=== PATIENT | female | born 1955 | race Caucasian/White ===

== ENCOUNTER → 2016-09-27 | Outpatient (CLI) | payer OTHER ==
[~2016-09-27] VITALS: Ht 147.3 cm; Wt 76.0 kg
[~2016-09-27] MED LIST: ALEVE220 M1 PO; BUTALB-ACETAMI1 EAC1 PO; BUTALB-ACETAMI1 EAC2 PO; BUTALB-APAP-CA1 EACH PO; CALCIUM 600 +1 EAC1 PO; CELEBREX 200 M200 MG PO; COLACE100 MG PO; COZAAR 50 MG TA50 M2 PO; GLUCOSAMINE &1 EAC1 PO; HYDROCODON-ACE1 EAC1 PO; HYDROCODONE-AP1 EAC6 PO; IBUPROFEN 200200 M1 PO; IBUPROFEN 600600 M1 PO; IBUPROFEN 800800 M1 PO; LIPITOR10 MG PO; MEDROLDOSEPACK PO; METHADONE HCL 110 M1 PO; MOBIC15 MG PO; MULTIVITAMINS1 EAC7 PO; NORCO 5-325 TA1 EACH PO; NORVASC10 MG PO; TRAMADOL 50 MG50 MG PO; ULTRAM 50MG TAB50 MG PO; XARELTO10 MG PO; ZOCOR20 MG PO; ZORVOLEX35 MG PO
--- NOTE | ~2016-09-27 | HPC ---
[facility] [place] [address] PAIN MANAGEMENT CONSULTATION Name: MADDY ESCOBAR Room #: REG [facility]..#: [id number] Admission: 09/27/16 Attend Phys: Kimani Canchola MD Discharge: Date of : 51 Report #: [id number] THIS REPORT FOR: //name// CC: Rodrigo Lozano MD DATE OF SERVICE: 09/27/2016 FOLLOWUP COMPLAINT: The pain is all right. FOLLOWUP HISTORY: The patient is a 61-year-old female who has been seen in the pain clinic because of chronic lumbar radiculopathy. She finds that the tramadol medication was more helpful in the past. She continues to have pain and discomfort. She feels that it is mildly helpful. She rates her pain as 8/10. She notes walking, getting out of chair, sitting and driving can all exacerbate her discomfort. She rates her pain as an 8/10. It was 4/10 at the last visit. She feels that the cold weather may have something to do with it. She has not fallen since we saw her last. PHYSICAL EXAMINATION: VITAL SIGNS: Blood pressure 146/78, pulse 92, respiratory rate 16, room air saturation is 95%. The patient's height 147 cm, weight 76 kg, BMI is 35. MUSCULOSKELETAL: The patient continues to have pain and discomfort in the lumbar area with numbness, tingling as well as radiation of pain down into her legs. IMPRESSION: Lumbar radiculopathy with numbness and tingling radiating down into her legs to the level of the knee. RECOMMENDATION: We will continue with a conservative approach. The patient will try ibuprofen 600 mg 1 p.o. t.i.d. Script for this has been written. The patient will also continue with methadone 10 mg 1 p.o. t.i.d. She feels that the tramadol medication although it is not as effective, it is still helpful and would like to continue its use. She will call us if she has any problems with her medications. We would like to thank you for letting us participate in her care. We hope she continues to improve. <ELECTRONICALLY SIGNED> By: Kimani Canchola MD 09/30/16 0819 [id number] Kimani Canchola MD /nt
[2016-09-27 10:27] VITALS: BP 146/78
== END ==
LOC: PAIN 05:56
DX: M54.16 Radiculopathy, lumbar region (principal); I10 Essential (primary) hypertension

== ENCOUNTER → 2016-12-23 | Outpatient (CLI) | payer OTHER ==
[~2016-12-23] VITALS: Ht 147.3 cm; Wt 77.6 kg
--- NOTE | ~2016-12-23 | HPC ---
[facility] [address] [place] [address] PAIN MANAGEMENT CONSULTATION Name: MADDY ESCOBAR Room #: REG [facility]..#: [id number] Admission: 12/23/16 Attend Phys: Kimani Canchola MD Discharge: Date of : 53 Report #: [id number] THIS REPORT FOR: //name// CC: Rodrigo Lozano MD DATE OF SERVICE: 12/23/2016 FOLLOWUP COMPLAINT: Pain in the low back, right knee. FOLLOWUP HISTORY: The patient is a very pleasant 61-year-old female who has been followed in the pain clinic because of chronic lumbar radiculopathy. She also has some pain in her right knee. She rates it as a 5/10 today. She notes that walking, getting up from her chair and stiffness is present after driving. It can be problematic if she sits for too long. Sometimes improved by use of a cold pack. She feels that her medications are helpful and she is taking them as prescribed. She has had no complications from their use and would like to continue the medication. PHYSICAL EXAMINATION: Blood pressure 158/88, pulse 95, respiratory rate 14, room air saturation 98%. Height is 4 feet 10 inches, weight 77 kilos, BMI is 35.7. The patient has pain and discomfort as a result of pain radiating down into her lumbar area with numbness and tingling down into her legs. IMPRESSION: Lumbar radiculopathy with numbness and tingling into the legs down to level of her knee. RECOMMENDATION: We will continue with a conservative approach. The patient will continue with opioid medications and a script for her medications have been written. She will call us if she has any problems with the medications. We would like to thank you for letting us participate in her care. We hope she continues to improve. By: [id number] Kimani Canchola MD /nt
[2016-12-23 10:09] VITALS: BP 158/88
== END | disposition home or self-care (01) ==
LOC: PAIN 06:55
DX: M54.16 Radiculopathy, lumbar region (principal); M25.561 Pain in right knee; G89.29 Other chronic pain

== ENCOUNTER → 2017-03-22 | Outpatient (CLI) | payer OTHER ==
[~2017-03-22] VITALS: Ht 149.9 cm; Wt 77.1 kg
[2017-03-22 09:14] VITALS: BP 154/89
== END | disposition home or self-care (01) ==
LOC: PAIN 06:49
DX: M48.06 Spinal stenosis, lumbar region (principal); G89.29 Other chronic pain; F11.20 Opioid dependence, uncomplicated; Z88.8 Allergy status to other drugs, medicaments and biological substances

== ENCOUNTER → 2017-06-28 | Outpatient (CLI) | payer OTHER ==
[~2017-06-28] VITALS: Ht 147.3 cm; Wt 71.5 kg
--- NOTE | ~2017-06-28 | HPC ---
[facility] [place] [address] [place] [address] PAIN MANAGEMENT CONSULTATION Name: MADDY ESCOBAR Room #: REG [facility]..#: [id number] Admission: 06/28/17 Attend Phys: Kimani Canchola MD Discharge: Date of : 53 Report #: [id number] THIS REPORT FOR: //name// CC: Rodrigo Lozano MD DATE OF SERVICE: 06/28/2017 FOLLOWUP COMPLAINT: Pain in the low back as well as in the knees bilaterally. FOLLOWUP HISTORY: The patient is a 61-year-old female who has been followed in the pain clinic because of chronic pain involving her low back and knees. She has chosen a conservative approach. She finds that ibuprofen, tramadol, and methadone are quite helpful. She would like to continue with these medications. She states that she is taking them as prescribed. She is having no complications. There are no problems with limitation. She would like to continue their use. PHYSICAL EXAMINATION: Blood pressure is 133/71, pulse 103, respiratory rate 20, room air saturation 98%. Height 4 feet 10 inches, weight 157 pounds, BMI is 32. The patient has pain and discomfort with pain radiating down into her legs with numbness and tingling at the level of the knees. RECOMMENDATION: We will continue with her current medical regimen. Risks and benefits of opioid therapy have been discussed. The patient would like to continue. A script for ibuprofen 600 mg has been written, tramadol script for 50 mg is written and methadone 10 mg 1 p.o. t.i.d. has been dispensed. She will call us if she has any problems with her medications. We would like to thank you for letting us participate in her care. We hope she continues to improve. By: [id number] Kimani Canchola MD /MILAN
[2017-06-28 09:18] VITALS: BP 133/71
== END | disposition home or self-care (01) ==
LOC: PAIN 07:17
DX: M54.5 Low back pain (principal); M17.0 Bilateral primary osteoarthritis of knee; Z68.32 Body mass index [BMI] 32.0-32.9, adult

== ENCOUNTER → 2017-09-22 | Outpatient (CLI) | payer OTHER ==
[~2017-09-22] VITALS: Ht 147.3 cm; Wt 76.2 kg
[~2017-09-22] MED LIST changes: +VITAMIN D1000 UNI1 PO
--- NOTE | ~2017-09-22 | HPC ---
[facility] [address] [place] [address] PAIN MANAGEMENT CONSULTATION Name: MADDY ESCOBAR Room #: REG [facility] M.R.#: [id number] Admission: 09/22/17 Attend Phys: Kimani Canchola MD Discharge: Date of : 53 Report #: [id number] THIS REPORT FOR: //name// CC: Rodrigo Lozano MD DATE OF SERVICE: 09/22/2017 FOLLOWUP COMPLAINT: Here for renewal of medication. Things are going okay. FOLLOWUP HISTORY: The patient is a 62-year-old female who has been followed in the pain clinic because of chronic pain involving her low back, bilateral knee pain and rates this pain and discomfort as a 7. She still has some pain and discomfort. Activities of daily living such as walking, getting up from a chair and certain other activities can exacerbate her pain. She continues to take the medications as prescribed. She continues to keep her medications in a guarded environment. We have discussed the possible complications of opioid use. She is a nurse. She is aware that possible addiction and tolerance could ensue. She feels that the medications are helpful and enable her to continue being gainfully employed at this juncture. ALLERGIES: ERYTHROMYCIN. MEDICATIONS: Vitamin D, tramadol 50 mg tablets 1 q.6-8 hours p.r.n., methadone 10 mg 1 p.o. t.i.d., ibuprofen 600 mg q.8 hours, Cozaar 50 mg at bedtime, Lipitor 10 mg, Norvasc 10 mg. PHYSICAL EXAMINATION: VITAL SIGNS: Blood pressure 154/76, pulse 103, respiratory rate 16, room air saturation 96%. Height 4 feet 4 feet 10 inches, weight 168 pounds, BMI 35. The patient has not fallen since we saw her last. Continues to work as a nurse. HEENT: Unremarkable. NECK: Without adenopathy. HEART: Regular rate. ABDOMEN: Nontender. The patient does complain of some numbness and tingling down in her leg to the level of her knees. IMPRESSION: 1. Chronic knee pain. 2. Low back pain with lumbar radicular pain down into the legs. 3. Hypercholesterolemia. 4. Hypertension. 5. Arthritic changes in the knee. [address] [address] PAIN MANAGEMENT CONSULTATION Name: MADDY ESCOBAR Room #: REG [facility].#: [id number] Admission: 09/22/17 Attend Phys: Kimani Canchola MD Discharge: Date of : 53 Report #: [id number] RECOMMENDATIONS: We discussed treatment options with the patient. At this juncture, we will continue with her current medical regimen. We have discussed the use of opioid medications. We have discussed the [facility] new regulations regarding use of opioid medications. The patient states that she continues to use her medications in a reasonable fashion. Continues to keep them in a controlled environment. She has found some medications continue to be helpful and enable her to remain active. At this juncture, she feels that the methadone is helpful and allows her to continue to work without the need for back surgery at this juncture. <ELECTRONICALLY SIGNED> By: Kimani Canchola MD 10/04/17 0837 [id number] Kimani Canchola MD /[facility]
[2017-09-22 09:42] VITALS: BP 154/76
== END ==
LOC: PAIN 07:10
DX: M54.16 Radiculopathy, lumbar region (principal); E78.00 Pure hypercholesterolemia, unspecified; E11.9 Type 2 diabetes mellitus without complications; M17.0 Bilateral primary osteoarthritis of knee; M25.562 Pain in left knee

== ENCOUNTER → 2017-12-27 | Outpatient (CLI) | payer OTHER ==
[~2017-12-27] VITALS: Ht 147.3 cm; Wt 76.4 kg
--- NOTE | ~2017-12-27 | HPC ---
[facility] [address] [place] [address] PAIN MANAGEMENT CONSULTATION Name: MADDY ESCOBAR Room #: REG [facility] M..#: [id number] Admission: 12/27/17 Attend Phys: Kimani Canchola MD Discharge: Date of : 53 Report #: [id number] THIS REPORT FOR: //name// CC: Rodrigo Lozano DATE OF SERVICE: 12/27/2017 FOLLOWUP COMPLAINT: Here for medication renewed and pain as a 4/10. FOLLOWUP HISTORY: The patient is a 62-year-old female who has been seen in the pain clinic because of lumbar pain in the low back, as well as bilateral knee pain and discomfort. She rates her pain as a 4/10. Notes that the pain is still problematic. Notes that she needs to use of her hands and notes worsening of her pain when she gets up from a sitting position to ambulation. She finds that her medications are helpful. Has pain and discomfort in both knees, which is chronic in nature. Overall, she feels that her medications are helpful and rates her pain as a 4/10. She has had no complication from the use of the medications. She feels that this medication is helpful and she is able to remain gainfully employed. She is able to engage in activities of daily living. States that she has taken the medication as prescribed. No significant bowel or bladder problems. Her mentation is clear. She would like to continue with her medications. She has been watching the opioid messages play out on the media. Overall, she feels that this medication is helpful for her. She keeps her medication in a guarded area. She would like to continue with her medication. ALLERGIES: MORPHINE, ERYTHROMYCIN. CURRENT MEDICATIONS: Tramadol 50 mg one p.o. q. 4 hours p.r.n., methadone 10 mg 1 p.o. t.i.d., ibuprofen 600 mg 1 p.o. q. 8 hours p.r.n., vitamin D 1000 units, losartan 50 mg at bedtime, Lipitor 10 mg, Norvasc 10 mg. PHYSICAL EXAMINATION: GENERAL: The patient is a well-developed white female. She appears to be her stated age. Orientation: The patient is alert and oriented x 3. The patient's affect is appropriate. Speech is fluent. HEENT: Normocephalic, atraumatic. Extraocular eye muscles intact. Hearing is within normal limits. Sclerae is clear. Buccal membranes are moist. The patient has good range of motion of her neck. HEART: Regular rate. LUNGS: Clear to auscultation. MUSCULOSKELETAL: Without significant scoliosis, kyphosis or lordosis. Has some pain and discomfort in the knees bilaterally. Notes some pain and discomfort in [address] [address] PAIN MANAGEMENT CONSULTATION Name: MADDY ESCOBAR Room #: REG [facility] Joselo#: [id number] Admission: 12/27/17 Attend Phys: Kimani Canchola MD Discharge: Date of : 53 Report #: [id number] the lower portion of her back. Muscle strength is judged to be 5/5 for the major muscle groups in the upper extremity as well as with head cook strength and normal sensation. Lower back 5/5 muscle strength with some pain and discomfort in the paraspinous muscles area. IMPRESSION: Bilateral knee pain with history of lumbar radiculopathy, severe foraminal narrowing at L5-S1 and moderately severe foraminal stenosis at L4-L5, hypertension, hyperlipidemia. PAIN CLINIC ASSESSMENT: 1. History of osteoarthritis, right lower extremity, some low back areas with spinal stenosis in the lower lumbar area. 2. Height 4 feet 10 inches, weight 164 pounds, BMI is 35. 3. Vital signs: Blood pressure 144/93, pulse 88, respiratory rate 16, room air saturation 98%. 4. Pain intensity is 4/10. 5. Fall risk. The patient has not fallen in the last 3 months. 6. Blood thinner. The patient is not on a blood thinner. 7. Hypertension. The patient is being treated for hypertension. 8. Opioid therapy greater than 6 weeks. The patient is on opioid therapy. 9. Risk assessment tool, low risk for opioid use. 10. Functional assessment tool showing some impact on her activities of daily living. 11. Recreational drug use, never. 12. Tobacco, never smoked cigarettes. 13. Alcoholic use, denies use of alcoholic beverages. RECOMMENDATIONS: We discussed treatment options with the patient. At this juncture, she seems to be doing reasonably well with her current medication regimen. We will continue with the use of the methadone 10 mg 1 p.o. t.i.d., ibuprofen 600 mg daily, tramadol 50 mg q. 4 hours p.r.n. The patient will call us if she has any problems with her medications. We would like to thank you for letting us participate in her care. We hope she continues to improve. By: [id number] Kimani Canchola MD /MILAN
[2017-12-27 09:36] VITALS: BP 144/93
== END ==
LOC: PAIN 09:23
DX: M25.561 Pain in right knee (principal); M25.562 Pain in left knee; E78.5 Hyperlipidemia, unspecified; I10 Essential (primary) hypertension; M47.27 Other spondylosis with radiculopathy, lumbosacral region; Z88.5 Allergy status to narcotic agent; Z88.1 Allergy status to other antibiotic agents

== ENCOUNTER → 2018-03-30 | Outpatient (CLI) | payer OTHER ==
[~2018-03-30] VITALS: Ht 147.3 cm; Wt 78.5 kg
--- NOTE | ~2018-03-30 | HPC ---
[facility] [address] [place] [address] PAIN MANAGEMENT CONSULTATION Name: MADDY ESCOBAR Room #: REG [facility] M.R.#: [id number] Admission: 03/30/18 Attend Phys: Kimani Canchola MD Discharge: Date of : 51 Report #: [id number] THIS REPORT FOR: //name// CC: Jorge Alberto Lozano MD DATE OF SERVICE: 03/30/2018 FOLLOWUP COMPLAINT: Here for medication renewal, things are going reasonably well, but I am still having knee pain. FOLLOWUP HISTORY: The patient is a 62-year-old female who has been followed in the pain clinic because of chronic pain involving her low back. She also has bilateral knee pain. Feels that the knee pain is becoming more of problem at this juncture, but still elects to continue on a conservative approach. Notes that her pain medications of methadone and tramadol as well as ibuprofen are helpful. They enable her to continue to remain gainfully employed. She is taking the medication as prescribed. Having no problems with the medication. Sensorium is clear. She has returned today and would like to get her medications renewed. She is aware of the possible complication with opioid medications, which could include addiction as well as less effectiveness of the medication secondary to tolerance. She has returned today for renew of her medications. ALLERGIES: MORPHINE AND ERYTHROMYCIN. MEDICATIONS: Tramadol 50 mg q. 4 hours p.r.n., methadone 10 mg 1 p.o. t.i.d., ibuprofen 600 mg q.8 hours, vitamin D 1000 units, losartan 50 mg at bedtime, Lipitor 10 mg, and Norvasc 10 mg. PAIN CLINIC ASSESSMENT: 1. The patient has a history of osteoarthritis involving her right lower extremity as well as her left lower extremity involving her knees. 2. Height 4 feet 10 inches, weight 173 pounds, BMI is 36. 3. Vital signs: Blood pressure 144/73, pulse 69, respiratory rate 16, room air saturation is 100%. 4. Pain intensity 8/10 with activity. 5. Fall risk. The patient has not fallen in the last 3 months. 6. Use of blood thinning medication. The patient is not on a blood thinner. 7. Hypertension. The patient is being treated for hypertension. 8. Opioid therapy greater than 6 weeks. The patient is receiving her medication from 1 source, which is the pain clinic. 9. Risk assessment tool, low risk for opioid use. 10. Functional assessment tool. [address] [address] PAIN MANAGEMENT CONSULTATION Name: MADDY ESCOBAR Room #: REG [facility]#: [id number] Admission: 03/30/18 Attend Phys: Kimani Canchola MD Discharge: Date of : 53 Report #: [id number] 11. Recreational drug use. The patient denies use of recreational drugs. 12. Tobacco: The patient denies use of tobacco. 13. Alcohol: The patient denies frequent use of alcoholic beverages. PHYSICAL EXAMINATION: GENERAL: The patient is a well-developed white female, appears somewhat short in stature. She is alert and oriented x 3. HEENT: Sclerae is nonicteric. Hearing is within normal limits. Mucous membranes are moist. NECK: Without adenopathy or JVD. HEART: Regular rate. S1, S2. ABDOMEN: Nontender. LUNGS: Clear to auscultation without rhonchi or rales. MUSCULOSKELETAL: Without significant scoliosis, kyphosis, or lordosis. Upper extremity muscle strength is judged to be 5/5 for the major muscle groups in the upper extremity with symmetry. Lower extremity muscle strength is 5/5. The patient has pain and discomfort involving her knees bilaterally. Has history of back pain, which radiates down into the lumbar area as well. RECOMMENDATIONS: We will renew the patient's medication. A script for tramadol 50 mg every 4-6 hours, ibuprofen 600 mg q.i.d. -- patient felt that this medication works better than Mobic, methadone 10 mg 1 p.o. t.i.d. The patient will call us if she has any problem with her medications. We would like to thank you for letting us participate in her care. We hope she continues to improve. By: [id number] Kimani Canchola MD /MILAN
[2018-03-30 09:53] VITALS: BP 144/73
== END ==
LOC: PAIN 06:51
DX: M54.5 Low back pain (principal); M25.561 Pain in right knee; M25.562 Pain in left knee; Z79.899 Other long term (current) drug therapy

== ENCOUNTER → 2018-03-30 | Outpatient (CLI) | payer OTHER | LOC: RAD 10:54 | DX: Z12.31 Encounter for screening mammogram for malignant neoplasm of breast (principal) ==

== ENCOUNTER → 2018-07-11 | Outpatient (CLI) | payer OTHER ==
[~2018-07-11] VITALS: Ht 147.3 cm; Wt 81.1 kg
[2018-07-11 09:17] VITALS: BP 126/70
== END ==
LOC: PAIN 06:58
DX: M54.5 Low back pain (principal); M17.11 Unilateral primary osteoarthritis, right knee; G89.29 Other chronic pain; Z79.899 Other long term (current) drug therapy

== ENCOUNTER → 2018-10-24 | Outpatient (CLI) | payer OTHER ==
[~2018-10-24] VITALS: Ht 149.9 cm; Wt 80.8 kg
--- NOTE | ~2018-10-24 | HPC ---
[facility] [place] [address] [place] [address] PAIN MANAGEMENT CONSULTATION Name: MADDY ESCOBAR Room #: REG [facility]..#: [id number] Admission: 10/24/18 Attend Phys: Kimani Canchola MD Discharge: Date of : 51 Report #: [id number] THIS REPORT FOR: //name// CC: Kimani Lozano MD DATE OF SERVICE: 10/24/2018 CHIEF COMPLAINT: Here for medications. "I might consider having my knee surgery in the future." HISTORY OF PRESENT ILLNESS: The patient is a 63-year-old female who has been followed in the Pain Clinic. As you recall, she continues to have some pain in her back. Has bilateral knee pain. She is entertaining, having her knee replaced. Finds it is more and more problematic. She feels that the work force at her job is more stable at this point. She is going to consider undergoing surgery. She may have it at [facility]. She overall feels that her medications are helpful. She has returned today for renewal of the medications. Does not have any problems with him. Feels that they enable her to stay gainfully employed, help decrease her pain. She is able to think clearly. There are no problems with clouding of her sensorium. ALLERGIES: MORPHINE, ERYTHROMYCIN. CURRENT MEDICATIONS: Tramadol 50 mg q.4h., methadone 10 mg 1 p.o. t.i.d., ibuprofen 600 mg q.8h., vitamin D 1000 units, losartan 50 mg, Lipitor 10 mg, and Norvasc 10 mg. PAIN CLINIC ASSESSMENT/PQRS. 1. The patient has a history of osteoarthritis change involving her left knee and is contemplating replacement. Also, has some low back pain. The patient is not being treated for rheumatoid arthritis. 2. Height 4 feet 10 inches, weight 178 pounds, BMI 36.0. 3. Vital signs: Blood pressure 121/67, pulse 91, respiratory rate 16, and room air saturation 97%. 4. Pain intensity 01/02. 5. Fall risk. The patient has not fallen in the last 3 months. 6. Blood thinner. The patient is not on a blood thinning medication. 7. Hypertension. The patient is being treated for hypertension. 8. Opioid greater than 6 weeks. The patient receives her medications from one source, the Pain Clinic. 9. Risk assessment tool, low risk 0 for opioid use. 10. Functional assessment tool . 11. Recreational drug use. The patient denies use recreational drugs. 12. Tobacco: The patient has never smoked. [address] [address] PAIN MANAGEMENT CONSULTATION Name: MADDY ESCOBAR Room #: REG [facility].#: [id number] Admission: 10/24/18 Attend Phys: Kimani Canchola MD Discharge: Date of : 51 Report #: [id number] 13. Alcohol: The patient denies use of alcoholic beverages. PHYSICAL EXAMINATION: GENERAL: The patient is a well-developed, well-nourished, somewhat small in stature white female. She is alert and oriented x 3. Her affect is appropriate. Speech is slow. HEENT: Normocephalic and atraumatic. Extraocular muscles intact. Sclerae nonicteric. Mucous membranes are moist. NECK: Without adenopathy or JVD. MUSCULOSKELETAL: Without significant scoliosis, kyphosis or lordosis. Upper extremity muscle strength is judged to be 5/5 for the major muscle groups in the upper extremity. The patient has lower extremity muscle strength 5/5. The patient has pain and discomfort in her knees. Left knee more problematic. Has some pain in the lower portion of the back with occasional pain that radiated down into the lumbar area. IMPRESSION: 1. Chronic pain involving the low back. 2. Osteoarthritis involving the knees. The patient is contemplating having knee surgery. RECOMMENDATIONS: We discussed treatment options with the patient. At this juncture, we will continue with her current medical regimen of tramadol 50 mg q.4-6h., ibuprofen 600 mg, methadone 10 mg t.i.d. and Mobic. The patient will continue with her medications. She will call us if she has any concerns. We would like to thank you for letting us participate in her care. We hope she continues to improve. By: [id number] Kimani Canchola MD /masood
[2018-10-24 12:40] VITALS: BP 121/67
--- NOTE | 2018-10-24 12:50 | NUR ---
Pain Clinic Assessment: 1. History of Osteoarthritis: Right Lower Extremity History of Rheumatoid Arthritis: Not Applicable 2. Height: 4 ft. 11 in. 149.9 cm. Weight: 178.2 lb. oz. 80.831 kg. Patient's BMI: 36.0 3. Vital Signs: BP: 121/67 Pulse: 93 Resp: 16 Temp: 02 Sat: 97 ECG Mon: 4. Pain Intensity: 4 5. Fall Risk: Dizziness: N Needs help standing or walking: N Fallen in the last 3 months: N Fall risk comments: 6. Patient on Blood Thinner: None 7. History of Hypertension: Y 8. Opioid Therapy greater than 6 weeks: Y Opiate Contract Signed: 12/27/17 9. Risk Assessment Tool Provided: LOW RISK 0/0 10. Functional Assessment Tool: 23 11. Recreational Drug Use: Never Drug Type: Tobacco Use: Never Smoker Tobacco Type: Amount or Packs/day: How Many Years: Alcohol Use: No Frequency: Quant:
== END ==
LOC: PAIN 07:00
DX: M17.0 Bilateral primary osteoarthritis of knee (principal); M54.5 Low back pain; G89.29 Other chronic pain; Z79.899 Other long term (current) drug therapy

== ENCOUNTER → 2019-01-23 | Outpatient (CLI) | payer OTHER ==
[~2019-01-23] VITALS: Ht 149.9 cm; Wt 78.0 kg
--- NOTE | ~2019-01-23 | HPC ---
[facility] [place] [address] PAIN MANAGEMENT CONSULTATION Name: MADDY ESCOBAR Room #: REG [facility] Rodney.#: [id number] Admission: 01/23/19 ������������������ Attend Phys: Kimani Canchola MD Discharge: ������������������ Date of : 51 Report #: [id number] THIS REPORT FOR: //name// CC: Kimani Lozano DATE OF SERVICE: 01/23/2019 CHIEF COMPLAINT: Here for medication renewal, things are going reasonably well. HISTORY: The patient is a very pleasant 63-year-old female. She has been followed in the pain clinic because of chronic pain. She has pain that radiates down in to her knees. She is considering having her knee replaced. Continues to stay gainfully employed. She does work in a physician's office. She is not having any problems with her medications and has returned today with a desire to continue with her medications of tramadol and methadone. ALLERGIES: MORPHINE, ERYTHROMYCIN. CURRENT MEDICATIONS: Tramadol 50 mg every 4 hours, methadone 10 mg 1 p.o. t.i.d., ibuprofen 600 mg q.i.d., vitamin D 1000 units, losartan 50 mg, Lipitor 10 mg, and Norvasc 5 mg. PAIN CLINIC ASSESSMENT/PQRS: 1. History of osteoarthritis. The patient has some arthritic changes in her left knee. She has not been treated for rheumatoid arthritis. 2. Height 4 feet 11 inches, weight 172 pounds, BMI 34.7. 3. VITAL SIGNS: Blood pressure 127/66, pulse is 66, respiratory rate 18, room air saturation is 100%. 4. Pain intensity 5/10. 5. Fall risk. The patient has not fallen in the last 3 months. 6. Blood thinner. The patient is not on a blood thinning medication. 7. Hypertension. The patient is being treated for hypertension. 8. Opioids greater than 6 weeks. The patient receives her medications from one source, the pain clinic. 9. Risk assessment tool, low for opioid use. 10. Functional assessment tool . 11. Recreational drug use. The patient denies use of recreational drugs. 12. Tobacco: The patient has never smoked. 13. Alcohol: The patient denies use of alcoholic beverages. PHYSICAL EXAMINATION: GENERAL: The patient is a well-developed, well-nourished white female. Appears her stated age. She is alert and oriented x 3. Affect is appropriate. Speech is fluent. HEENT: Normocephalic, atraumatic. Extraocular eye muscles intact. Sclerae [address] [address] PAIN MANAGEMENT CONSULTATION Name: MADDY ESCOBAR Room #: REG [facility]#: [id number] Admission: 01/23/19 ������������������ Attend Phys: Kimani Canchola MD Discharge: ������������������ Date of : 51 Report #: [id number] nonicteric. Mucous membranes are moist. NECK: Without adenopathy or JVD. HEART: Regular rate. S1, S2. ABDOMEN: Nontender. Bowel sounds present. LUNGS: Clear to auscultation without rhonchi or rales. MUSCULOSKELETAL: Without significant scoliosis, kyphosis or lordosis. Upper extremity muscle strength is judged to be 5/5 for the major muscle groups of the upper extremity. Lower extremity, the patient has some pain and discomfort ____ involving her knees bilaterally. History of back pain, which radiates down into the low back area with lumbar radicular symptoms. RECOMMENDATIONS: We discussed treatment options with the patient. Risks and benefits of continued opioid medications were discussed. She is aware that chronic use of opioid medications can become less effective over time secondary to development of tolerance. States that she has taken her medications as prescribed. She is aware that 72,000 people as a result of overdose last year. She feels her medications are working well. She keeps them in a guarded area. She would like to have her medications renewed. A script for her medications of methadone 10 mg 1 p.o. t.i.d. and tramadol 50 mg 1 p.o. have been written. The patient will also continue with ibuprofen 600 mg t.i.d. She will monitor her GI tract. She will stop the medication if she notes any problems with her GI tract. We would like to thank you for letting us participate in her care. We hope she continues to improve. ��������������������������������������������� ���������������������������������������� By: ��������������������������������������������� [id number] Kimani Canchola MD /masood
[2019-01-23 09:33] VITALS: BP 127/66
--- NOTE | 2019-01-23 09:42 | NUR ---
Pain Clinic Assessment: 1. History of Osteoarthritis: Right Lower Extremity History of Rheumatoid Arthritis: Not Applicable 2. Height: 4 ft. 11 in. 149.9 cm. Weight: 172.0 lb. oz. 78.019 kg. Patient's BMI: 34.7 3. Vital Signs: BP: 127/66 Pulse: 66 Resp: 18 Temp: 02 Sat: 100 ECG Mon: 4. Pain Intensity: 5 5. Fall Risk: Dizziness: N Needs help standing or walking: N Fallen in the last 3 months: N Fall risk comments: 6. Patient on Blood Thinner: None 7. History of Hypertension: Y 8. Opioid Therapy greater than 6 weeks: Y Opiate Contract Signed: 12/27/17 9. Risk Assessment Tool Provided: LOW RISK 0/0 10. Functional Assessment Tool: 23 11. Recreational Drug Use: Never Drug Type: Tobacco Use: Never Smoker Tobacco Type: Amount or Packs/day: How Many Years: Alcohol Use: No Frequency: Quant:
== END ==
LOC: PAIN 07:08
DX: I10 Essential (primary) hypertension (principal); M19.90 Unspecified osteoarthritis, unspecified site; Z88.8 Allergy status to other drugs, medicaments and biological substances; Z79.899 Other long term (current) drug therapy; Z79.891 Long term (current) use of opiate analgesic

== ENCOUNTER → 2019-02-11 | Outpatient (CLI) | payer OTHER | LOC: RAD 07:07 | DX: R92.2 Inconclusive mammogram (principal); I10 Essential (primary) hypertension; E78.5 Hyperlipidemia, unspecified; G43.909 Migraine, unspecified, not intractable, without status migrainosus; M19.90 Unspecified osteoarthritis, unspecified site; E78.00 Pure hypercholesterolemia, unspecified; Z98.890 Other specified postprocedural states ==

== ENCOUNTER → 2019-04-17 | Outpatient (CLI) | payer OTHER | LOC: RAD 01:16 | DX: Z12.31 Encounter for screening mammogram for malignant neoplasm of breast (principal) ==

== ENCOUNTER → 2019-04-19 | Outpatient (CLI) | payer OTHER ==
[~2019-04-19] VITALS: Ht 124.5 cm; Wt 76.7 kg
--- NOTE | ~2019-04-19 | HPC ---
[facility] [address] [place] [address] PAIN MANAGEMENT CONSULTATION Name: MADDY ESCOBAR Room #: REG [facility]..#: [id number] Admission: 04/19/19 ������������������ Attend Phys: Kimani Canchola MD Discharge: ������������������ Date of : 51 Report #: [id number] THIS REPORT FOR: //name// CC: [facility] DATE OF SERVICE: 04/19/2019 CHIEF COMPLAINT: "I am going to see the doctor about having my knee replaced." HISTORY: The patient is a 63-year-old female who has been followed in the pain clinic because of chronic pain involving her knee. She has had one knee replaced some years ago. She has noticed that her pain has increased and she is having pain in the right lower extremity at this point. She rates the pain as an 8/10. She finds that her medications are helpful. She is contemplating seeing her Orthopedic doctor in the next few days. She will then consider having a knee replacement. She feels that her medications of tramadol and methadone are beneficial. She continues to work as a result of pain control provided by her medications. ALLERGIES: MORPHINE, ERYTHROMYCIN. CURRENT MEDICATIONS: Tramadol 50 mg 1 p.o. q.4 hours, methadone 10 mg 1 p.o. t.i.d., ibuprofen 600 mg q.i.d., vitamin D 1000 units, losartan 50 mg, Lipitor 10 mg, Norvasc 5 mg. PAIN CLINIC ASSESSMENT AND PQRS: 1. History of osteoarthritis. The patient has some osteoarthritic change in her left knee as well as in the right knee. The patient is not being treated for rheumatoid arthritis. 2. Height 4 feet 1 inch, weight 169 pounds, BMI is 49.5. 3. Vital signs: Blood pressure 137/54, pulse 80, respiratory rate 13, room air saturation 98%. 4. Pain intensity, 8/10. 5. Fall history. The patient has not fallen in the last 3 months. 6. Blood thinner. The patient is not on a blood thinning medication. 7. Hypertension. The patient is being treated for hypertension. 8. Opioids greater than 6 weeks. The patient receives her medication from one source, the pain clinic. 9. Risk assessment tool, low for opioid use. 10. Functional assessment tool, . 11. Recreational drug use. The patient has never smoked. 12. Alcohol: The patient denies use of alcoholic beverages. PHYSICAL EXAMINATION: [facility] [address] [place] [address] PAIN MANAGEMENT CONSULTATION Name: MADDY ESCOBAR [facility] [id number] Admission: 04/19/19 ������������������ Attend Phys: Kimani Canchola MD Discharge: ������������������ Date of : 51 Report #: [id number] GENERAL: The patient is a well-developed, well-nourished white female. Appears her stated age. She is somewhat short in stature. HEENT: Normocephalic, atraumatic. Extraocular eye muscles intact. Sclerae nonicteric. Mucous membranes are moist. NECK: Without adenopathy or JVD. HEART: Regular rate. S1, S2. ABDOMEN: Nontender. Bowel sounds present. LUNGS: Clear to auscultation. MUSCULOSKELETAL: Without significant scoliosis, kyphosis or lordosis. Upper extremity muscle strength judged to be 5/5 for the major muscle groups. The patient has some pain in the lower extremities involving her knees bilateral. She has noticed more pain and discomfort in the right knee. She is noticing more difficulty with ambulation because of it. RECOMMENDATIONS: We discussed treatment options with the patient. At this juncture, we will continue with her medications. She feels that they are helpful. She is working on a right knee replacement. She is on opioid medications. She is aware that use of opioid medications post-surgery might be a little bit more difficult given her chronic history of opioid medications. She is aware that opioid medications can be problematic in some patients. She feels that her medications are working reasonably well. She is keeping it in a guarded area. She may notice an increased amount of pain after the surgery. Should her pain become more problematic, we will work with her to help provide a smooth transition in the post-surgical period. A script for her medications of tramadol 1 p.o. q.i.d. and methadone 10 mg 1 p.o. t.i.d. have been written. The patient will follow up in the future as needed. We would like to thank you for letting us participate in her care. We hope she gets a smooth postop transition. ��������������������������������������������� ���������������������������������������� By: ��������������������������������������������� [id number] Kimani Canchola MD /MILAN
[2019-04-19 10:09] VITALS: BP 137/54
--- NOTE | 2019-04-19 10:14 | NUR ---
Pain Clinic Assessment: 1. History of Osteoarthritis: Right Lower Extremity History of Rheumatoid Arthritis: Not Applicable 2. Height: 4 ft. 1 in. 124.5 cm. Weight: 169.0 lb. oz. 76.658 kg. Patient's BMI: 49.5 3. Vital Signs: BP: 137/54 Pulse: 80 Resp: 13 Temp: 02 Sat: 98 ECG Mon: 4. Pain Intensity: 8 5. Fall Risk: Dizziness: N Needs help standing or walking: N Fallen in the last 3 months: N Fall risk comments: 6. Patient on Blood Thinner: None 7. History of Hypertension: Y 8. Opioid Therapy greater than 6 weeks: Y Opiate Contract Signed: 12/27/17 9. Risk Assessment Tool Provided: LOW RISK 0/0 10. Functional Assessment Tool: 23 11. Recreational Drug Use: Never Drug Type: Tobacco Use: Never Smoker Tobacco Type: Amount or Packs/day: How Many Years: Alcohol Use: No Frequency: Quant:
== END ==
LOC: PAIN 04-17 08:51
DX: M17.12 Unilateral primary osteoarthritis, left knee (principal); G89.29 Other chronic pain; I10 Essential (primary) hypertension; Z79.891 Long term (current) use of opiate analgesic; Z79.899 Other long term (current) drug therapy; Z88.5 Allergy status to narcotic agent; Z88.1 Allergy status to other antibiotic agents

== ENCOUNTER → 2019-07-10 | Outpatient (CLI) | payer OTHER ==
[~2019-07-10] VITALS: Ht 149.9 cm; Wt 75.2 kg
[~2019-07-10] MED LIST changes: +PERCOCET 5-3251 EACH PO
[2019-07-10 14:27] VITALS: BP 128/84
--- NOTE | 2019-07-10 14:36 | NUR ---
Pain Clinic Assessment: 1. History of Osteoarthritis: KNEE B/L HIPS LOWER BACK History of Rheumatoid Arthritis: Not Applicable 2. Height: 4 ft. 11 in. 149.9 cm. Weight: 165.8 lb. oz. 75.206 kg. Patient's BMI: 33.5 3. Vital Signs: BP: 128/84 Pulse: 103 Resp: 16 Temp: 02 Sat: 97 ECG Mon: 4. Pain Intensity: 4-NOW 5. Fall Risk: Dizziness: N Needs help standing or walking: N Fallen in the last 3 months: N Fall risk comments: 6. Patient on Blood Thinner: None 7. History of Hypertension: Y 8. Opioid Therapy greater than 6 weeks: Y Opiate Contract Signed: 12/27/17 9. Risk Assessment Tool Provided: LOW RISK 0/0 10. Functional Assessment Tool: 23 11. Recreational Drug Use: Never Drug Type: Tobacco Use: Never Smoker Tobacco Type: Amount or Packs/day: How Many Years: Alcohol Use: No Frequency: Quant:
--- NOTE | 2019-08-02 08:25 | HPC ---
[facility] [place] [address] PAIN MANAGEMENT CONSULTATION Name: MADDY ESCOBAR Room #: REG [facility]..#: [id number] Admission: 07/10/19 Attend Phys: Kimani Canchola MD Discharge: Date of : 51 Report #: [id number] THIS REPORT FOR: //name// CC: Rodrigo Dooley [facility] DATE OF SERVICE: 07/10/2019 CHIEF COMPLAINT: "I have had my knee surgery and things are going well." HISTORY: The patient is a 63-year-old female who has been followed in the pain clinic because of chronic knee pain. She has undergone a knee replacement. She has noticed an improvement in her pain. She is undergoing physical therapy. She had a knee replaced about 2 weeks ago. Rates her pain at this point as 4. Has also experienced pain in the low back area. Notes that the pain is worse with walking and with activity. Notes that her medication is helpful. She has returned to the pain clinic today for renewal of her medication. Overall, things have gone reasonably well. She does not have any problems with the methadone. Feels that the methadone as well as tramadol continued to be helpful in helping control pain. She is able to get the most out of her rehabilitation. ALLERGIES: MORPHINE, ERYTHROMYCIN. CURRENT MEDICATIONS: Tramadol 50 mg one p.o. q. 4 hours, methadone 10 mg 1 p.o. t.i.d., ibuprofen 600 mg q.i.d., vitamin D 1000 units, losartan 50 mg, Lipitor 10 mg, Norvasc 5 mg. PAIN CLINIC ASSESSMENT AND PQRS: 1. History of osteoarthritis. The patient has some arthritic changes in her left knee as well as her right knee, which has been replaced. The patient is not being treated for rheumatoid arthritis. 2. Height 4 feet 11 inches, weight 165 pounds, BMI is 33.5. 3. Vital signs: Blood pressure 128/84, pulse 103, respiratory rate 16, room air saturation 97%. 4. Pain intensity 01/02. 5. Fall risk. The patient has not fallen in the last 3 months. 6. Blood thinner. The patient is not on a blood thinning medication. 7. Hypertension. The patient is being treated for hypertension. 8. Opioids greater than 6 weeks. The patient receives medication from one source the pain clinic. 9. Risk assessment tool, low for opioid use. 10. Functional assessment tool . 11. Recreational drug use: The patient denies. 12. Tobacco: The patient has never smoked. 13. Alcohol. The patient denies frequent use of alcoholic beverages. [address] [address] PAIN MANAGEMENT CONSULTATION Name: MADDY ESCOBAR Room #: REG [facility] Rodney.#: [id number] Admission: 07/10/19 Attend Phys: Kimani Canchola MD Discharge: Date of : 51 Report #: [id number] PHYSICAL EXAMINATION: GENERAL: The patient is a well-developed, well-nourished white female. Appears her stated age. She is alert and oriented x 3. Her affect is appropriate. Speech is fluent. HEENT: Normocephalic, atraumatic. Extraocular eye muscles intact. NECK: Without adenopathy or JVD. HEART: Regular rate. S1, S2. ABDOMEN: Nontender. Bowel sounds present. LUNGS: Clear to auscultation. MUSCULOSKELETAL: Without significant scoliosis, kyphosis or lordosis. Upper extremity muscle strength judged to be 5/5 for the major muscle groups in the upper extremity. The patient has a well-healing knee. She is noticing increasing range of motion with decreasing pain since her surgery 2 weeks ago. IMPRESSION: 1. Chronic pain involving the low back. 2. Osteoarthritis involving her knees. The patient is status post two weeks knee arthroplasty. RECOMMENDATIONS: We discussed treatment options with the patient. At this juncture, we will continue with her medications. She feels the medications are helpful. They enable her to engage in more activity than she would without them. She is working to increase her range of motion. She notes that the pain medication can become less effective over time secondary to tolerance. She has taken the medication as prescribed. Keeps her medications in a guarded area. She is aware that 70,000 people last year as a result of overdosing. The patient would like to have her medications renewed. She is happy that she has had a right knee replaced and is noting increased range of motion with use of her current medical regimen. A script for her medications have been written. She will continue with methadone 10 mg 1 p.o. t.i.d. A script for this medication has been written. The patient will also continue with tramadol 50 mg 1 p.o. q.i.d., not to exceed 400 mg per day. She will call us if she has any concerns. Overall, things are going well. We would like to thank you for letting us participate in her care. <ELECTRONICALLY SIGNED> By: Kimani Canchola MD 08/02/19 [id number] Kimani Canchola MD /PMT
== END ==
LOC: PAIN 07:20
DX: Z47.1 Aftercare following joint replacement surgery (principal); M54.5 Low back pain; G89.29 Other chronic pain; I10 Essential (primary) hypertension; Z96.653 Presence of artificial knee joint, bilateral; Z79.891 Long term (current) use of opiate analgesic; Z79.899 Other long term (current) drug therapy; Z88.1 Allergy status to other antibiotic agents; Z88.5 Allergy status to narcotic agent

== ENCOUNTER → 2019-10-09 | Outpatient (CLI) | payer OTHER ==
[~2019-10-09] VITALS: Ht 149.9 cm; Wt 75.2 kg
[2019-10-09 10:14] VITALS: BP 145/96
--- NOTE | 2019-10-09 10:47 | NUR ---
Pain Clinic Assessment: 1. History of Osteoarthritis: KNEE B/L HIPS LOWER BACK History of Rheumatoid Arthritis: DENIES 2. Height: 4 ft. 11 in. 149.9 cm. Weight: 165.8 lb. oz. 75.206 kg. Patient's BMI: 33.5 3. Vital Signs: BP: 145/96 Pulse: 92 Resp: 16 Temp: 02 Sat: 97 ECG Mon: 4. Pain Intensity: 2 5. Fall Risk: Dizziness: N Needs help standing or walking: N Fallen in the last 3 months: N Fall risk comments: 6. Patient on Blood Thinner: None 7. History of Hypertension: Y 8. Opioid Therapy greater than 6 weeks: Y Opiate Contract Signed: 12/27/17 9. Risk Assessment Tool Provided: LOW RISK 0/0 10. Functional Assessment Tool: 23 11. Recreational Drug Use: Never Drug Type: Tobacco Use: Never Smoker Tobacco Type: Amount or Packs/day: How Many Years: Alcohol Use: No Frequency: Quant:
--- NOTE | 2019-10-23 08:36 | HPC ---
[facility] [address] [place] [address] PAIN MANAGEMENT CONSULTATION Name: MADDY ESCOBAR Room #: REG [facility]..#: [id number] Admission: 10/09/19 Attend Phys: Kimani Canchola MD Discharge: Date of : 51 Report #: [id number] THIS REPORT FOR: //name// CC: Rodrigo Dooley [facility] DATE OF SERVICE: 10/09/2019 CHIEF COMPLAINT: "Pain is improved since I had my surgery." HISTORY: The patient is a very pleasant 64-year-old female who has been followed in the pain clinic. As you may recall, she has had some problems with her knee, she had one knee, which was replaced. Her contralateral knee has been replaced. She has noticed an improvement in her pain. She has been using methadone medication. She feels at this juncture because of her pain, which is improving, she can decrease her pain medication. She continues to exercise, which has been provided by her physical therapy. ALLERGIES: MORPHINE, ERYTHROMYCIN. CURRENT MEDICATIONS: Tramadol 50 mg one p.o. q. 4-6 hours, methadone 10 mg 1 p.o. t.i.d., ibuprofen 600 mg q.i.d., vitamin D 1000 units, losartan 50 mg, Lipitor 10 mg, Norvasc 5 mg. PAIN CLINIC ASSESSMENT AND PQRS: 1. The patient has some arthritic changes in her left knee as well as in her right knee, which has been replaced. The patient is not being treated for rheumatoid arthritis. 2. Height 4 feet 11 inches, weight 165 pounds, BMI is 33.5. 3. Vital signs: Blood pressure 145/96, pulse 92, respiratory rate 16, room air saturation 97%. Pain intensity 11/04. 4. Fall history: The patient has not fallen in the last 3 months. 5. Blood thinner. The patient is not on a blood thinning medication. 6. Hypertension. The patient is being treated for hypertension. 7. Opioids greater than 6 weeks. The patient received medication from one source the pain clinic. 8. Risk assessment tool, low for opioid use. 9. Functional assessment tool . 10. Recreational drug use: The patient denies. 11. Tobacco: The patient denies use of tobacco. 12. Alcohol. The patient denies frequent use of alcoholic beverages. PHYSICAL EXAMINATION: GENERAL: The patient is a well-developed, well-nourished white female. Appears her stated age. She is alert and oriented x 3. [place] [address] PAIN MANAGEMENT CONSULTATION Name: MADDY ESCOBAR Room #: REG [facility].#: [id number] Admission: 10/09/19 Attend Phys: Kimani Canchola MD Discharge: Date of : 51 Report #: [id number] Speech is fluent. HEENT: Normocephalic, atraumatic. Extraocular eye muscles intact. Sclerae nonicteric. Mucous membranes are moist. NECK: Without adenopathy or JVD. HEART: Regular rate. S1, S2. ABDOMEN: Nontender. Bowel sounds present. LUNGS: Clear to auscultation. EXTREMITIES: Upper extremity muscle strength judged to be 5/5 for the major muscle groups in the upper extremity. The patient without significant scoliosis, kyphosis or lordosis. The patient has a well healing areas in her knee. Notes some increasing range of motion. Continues physical therapy. IMPRESSION: 1. Chronic pain involving the low back. 2. Osteoarthritis involving her knees, status post arthroplasty. RECOMMENDATIONS: We discussed treatment options with the patient. At this juncture, she feels that her medications have been helpful. They have been efficacious. She feels that she would like to decrease the amount of medication that she is taking. She would like to decrease the methadone from 10 mg t.i.d. to 10 mg b.i.d. I think this will be a good time to do this. She will continue to monitor her pain. She will call us if she has any problems with her medications. A script for her medications have been rewritten. The patient will continue with methadone 10 mg 1 p.o. b.i.d. She will also continue with tramadol 50 mg q.4-6 hours p.r.n. for pain. We would like to thank you for letting us participate in her care. We hope she continues to improve. <ELECTRONICALLY SIGNED> By: Kimani Canchola MD 10/23/19 [id number] Kimani Canchola MD /MILAN
== END ==
LOC: PAIN 06:50
DX: M17.0 Bilateral primary osteoarthritis of knee (principal); M54.5 Low back pain; G89.29 Other chronic pain; Z88.1 Allergy status to other antibiotic agents; Z88.5 Allergy status to narcotic agent; Z79.899 Other long term (current) drug therapy

== ENCOUNTER → 2020-01-01 | Outpatient (CLI) | payer OTHER ==
[~2020-01-01] VITALS: Ht 149.9 cm; Wt 78.2 kg
[2020-01-01 09:11] VITALS: BP 138/76
--- NOTE | 2020-01-01 09:19 | NUR ---
Pain Clinic Assessment: 1. History of Osteoarthritis: KNEE B/L HIPS LOWER BACK History of Rheumatoid Arthritis: DENIES 2. Height: 4 ft. 11 in. 149.9 cm. Weight: 172.4 lb. oz. 78.200 kg. Patient's BMI: 34.8 3. Vital Signs: BP: 138/76 Pulse: 79 Resp: 14 Temp: 02 Sat: 100 ECG Mon: 4. Pain Intensity: 2 5. Fall Risk: Dizziness: N Needs help standing or walking: N Fallen in the last 3 months: N Fall risk comments: 6. Patient on Blood Thinner: None 7. History of Hypertension: Y 8. Opioid Therapy greater than 6 weeks: Y Opiate Contract Signed: 12/27/17 9. Risk Assessment Tool Provided: LOW RISK 0/0 10. Functional Assessment Tool: 23 11. Recreational Drug Use: Never Drug Type: Tobacco Use: Never Smoker Tobacco Type: Amount or Packs/day: How Many Years: Alcohol Use: No Frequency: Quant:
--- NOTE | 2020-01-08 15:15 | HPC ---
[facility] [place] [address] PAIN MANAGEMENT CONSULTATION Name: MADDY ESCOBAR Room #: REG [facility].#: [id number] Admission: 01/01/20 Attend Phys: Kimani Canchola MD Discharge: Date of : 51 Report #: [id number] THIS REPORT FOR: cc: Miah Lozano MD, Rene P. MD Brown, N. Wayne MD ~ CC: Kimani Lozano DATE OF SERVICE: 01/06/2020 CHIEF COMPLAINT: Low back and neck pain, which is sometimes worse in the morning. HISTORY: The patient is a 64-year-old female who has been followed in the pain clinic. She has had problems with her knees. She has had knee replacements. She notes some pain in the low back area at this juncture. She also has some pain in her neck at times. Overall, things are going reasonably well. The pain can be worse in the morning. It is exacerbated with walking. It can be problematic if she sits for too longer period of time. It can be exacerbated by standing on her feet for prolonged periods. Overall, she feels her medications are helpful. She continues to be gainfully employed. She has returned today with the hopes of renewing her medications. ALLERGIES: MORPHINE, ERYTHROMYCIN. CURRENT MEDICATIONS: Tramadol 50 mg one p.o. q. 4-6 hours, methadone 10 mg 1 p.o. t.i.d., ibuprofen 600 mg q.i.d., vitamin D 1000 units, losartan 50 mg, Lipitor 10 mg. PAIN CLINIC ASSESSMENT AND PQRS: 1. The patient does have some arthritic changes in her left knee as well as in her right knee. They have been replaced. The patient is not being treated for rheumatoid arthritis. 2. Height 4 feet 11 inches, weight 172 pounds, BMI is 34.8. 3. Vital Signs: Blood pressure 138/76, pulse 79, respiratory rate 14, room air saturation is 100%. 4. Pain intensity 11/04. 5. Fall history: The patient has not fallen in the last 3 months. 6. Blood thinner. The patient is not on a blood thinning medication. 7. Hypertension. The patient is being treated for hypertension. 8. Opioids greater than 6 weeks. The patient receives medications from the pain clinic. 9. Risk assessment tool, low for opioid use. 10. Functional assessment tool . 11. Recreational drug use: [place] [id number] PAIN MANAGEMENT CONSULTATION Name: MADDY ESCOBAR Room #: REG [facility]#: [id number] Admission: 01/01/20 Attend Phys: Kimani Canchola MD Discharge: Date of : 51 Report #: [id number] 12. Tobacco: The patient denies. 13. Alcohol. The patient denies frequent use of alcoholic beverages. PHYSICAL EXAMINATION: GENERAL: The patient is a well-developed, well-nourished white female. Appears her stated age. She is alert and oriented x 3. Her affect is appropriate. Speech is fluent. HEENT: Normocephalic, atraumatic. Extraocular eye muscles intact. Sclerae nonicteric. Mucous membranes are moist. NECK: Without adenopathy or JVD. HEART: Regular rate. S1, S2. ABDOMEN: Nontender. Bowel sounds present. LUNGS: Generally clear to auscultation. EXTREMITIES: Upper extremity muscle strength judged to be 5/5 for the major muscle groups in the upper extremity. The patient without significant scoliosis, kyphosis or lordosis. Has well-healing scars in her knees. Has pain, which continues to improve with physical therapy. IMPRESSION: 1. Chronic pain involving the low back. 2. Osteoarthritis involving the knees, status post arthroplasties. RECOMMENDATIONS: We discussed treatment options with the patient. Risks and benefits of opioid medications have been discussed. The patient is aware that medications can become less effective over time because of development of tolerance. The patient feels that her medications have been beneficial. She continues to stay gainfully employed. She has returned today with the hopes of renewing her medications. A script for her medications have been rewritten. The patient will continue with methadone 10 mg 1 p.o. t.i.d. A script for 3 months medication has been provided. The patient will also continue tramadol 50 mg one p.o. q. 4-6 hours p.r.n. She will continue with ibuprofen 600 mg q.8 hours p.r.n. She will continue to monitor this medication and stop it if she notes some upset because of pain in the GI tract. The patient will call us if she has any concerns. We would like to thank you for letting us participate in her care. We hope she continues to improve. <ELECTRONICALLY SIGNED> By: Kimani Canchola MD 01/08/20 [id number] Kimani Canchola MD /[facility]
== END ==
LOC: PAIN 08:50
DX: M54.5 Low back pain (principal); M54.2 Cervicalgia; M17.0 Bilateral primary osteoarthritis of knee; F11.20 Opioid dependence, uncomplicated; Z88.5 Allergy status to narcotic agent; Z88.8 Allergy status to other drugs, medicaments and biological substances; Z79.899 Other long term (current) drug therapy

== ENCOUNTER → 2020-04-22 | Outpatient (CLI) | payer OTHER ==
[~2020-04-22] VITALS: Ht 149.9 cm; Wt 78.1 kg
[2020-04-22 08:59] VITALS: BP 110/59
--- NOTE | 2020-04-22 09:16 | NUR ---
Pain Clinic Assessment: 1. History of Osteoarthritis: KNEE B/L HIPS LOWER BACK History of Rheumatoid Arthritis: DENIES 2. Height: 4 ft. 11 in. 149.9 cm. Weight: 172.2 lb. oz. 78.109 kg. Patient's BMI: 34.8 3. Vital Signs: BP: 110/59 Pulse: 72 Resp: 16 Temp: 02 Sat: 97 ECG Mon: 4. Pain Intensity: 2 5. Fall Risk: Dizziness: N Needs help standing or walking: N Fallen in the last 3 months: N Fall risk comments: 6. Patient on Blood Thinner: None 7. History of Hypertension: Y 8. Opioid Therapy greater than 6 weeks: Y Opiate Contract Signed: 04/21/20 9. Risk Assessment Tool Provided: LOW RISK 0 10. Functional Assessment Tool: 11. Recreational Drug Use: Never Drug Type: Tobacco Use: Never Smoker Tobacco Type: Amount or Packs/day: How Many Years: Alcohol Use: No Frequency: Quant:
--- NOTE | 2020-04-29 23:51 | HPC ---
[facility] [address] [place] [address] PAIN MANAGEMENT CONSULTATION Name: MADDY ESCOBAR Room #: REG [facility]..#: [id number] Admission: 04/22/20 Attend Phys: Kimani Canchola MD Discharge: Date of : 51 Report #: [id number] THIS REPORT FOR: cc: Miah Lozano MD, Rene P. MD Brown, N. Wayne MD ~ CC: Galen Lozano MD DATE OF SERVICE: 04/22/2020 CHIEF COMPLAINT: Low back and neck pain. HISTORY: The patient is a 64-year-old female who has been followed in the Pain Clinic. As you may recall, she suffers from chronic pain. She has pain involving her low back. She has pain in the neck at times. She has had knee replacements. She rates her pain as a 2 overall. She feels that things are going reasonably well. Notes some increased pain and discomfort with walking. Her pain is worse in the morning. Activity can worsen the discomfort. She feels that her medications are working reasonably well. She notes that sitting and resting can be helpful. She feels her medications are working well. She does not have any problems with the methadone or the tramadol. She would like to have these medications renewed. ALLERGIES: MORPHINE, ERYTHROMYCIN. CURRENT MEDICATIONS: Tramadol 50 mg one p.o. q 4-6 hours p.r.n., methadone 10 mg 1 p.o. t.i.d., ibuprofen 600 mg q.i.d., vitamin D 1000 units, losartan 50 mg, and Lipitor 10 mg. PAIN CLINIC ASSESSMENT/PQRS: 1. The patient does have some arthritic changes in her knees, left and right. They have been replaced. The patient is not being treated for rheumatoid arthritis. 2. Height 4 feet 11 inches, weight 172 pounds, BMI 34.8. 3. Vital Signs: Blood pressure 110/59, pulse 72, respiratory rate 16, room air saturation 97%, and no temperature is recorded. 4. Pain intensity, 11/04. 5. Fall history: The patient has not fallen in the last 3 months. 6. Blood thinner. The patient is not on a blood thinning medication. 7. Hypertension. The patient is being treated for hypertension. 8. Opioids greater than 6 weeks. The patient receives medication from the Pain Clinic. 9. Risk assessment tool, low [place] [address] PAIN MANAGEMENT CONSULTATION Name: MADDY ESCOBAR [id number] Admission: 04/22/20 Attend Phys: Kimani Canchola MD Discharge: Date of : 51 Report #: [id number] 10. Functional assessment tool, . 11. Recreational drug use. The patient denies. 12. Tobacco: The patient has never smoked. 13. Alcohol. The patient denies frequent use of alcoholic beverages. PHYSICAL EXAMINATION: GENERAL: The patient is a well-developed, well-nourished white female. Appears her stated age. She is alert and oriented x 3. Her affect is appropriate. Speech is fluent. HEENT: Normocephalic, atraumatic. Extraocular eye muscles intact. Sclerae nonicteric. Mucous membranes are moist. NECK: Without adenopathy or JVD. HEART: Regular rate. S1, S2. ABDOMEN: Nontender. LUNGS: Clear to auscultation. EXTREMITIES: Upper extremity muscle strength is judged to be 5/5 for the major muscle groups in the upper extremity. The patient is without significant scoliosis, kyphosis or lordosis. 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 Complains of some occasional pain in the neck. IMPRESSION: 1. Chronic pain involving the low back. 2. History of osteoarthritis involving the knees, status post arthroplasties. RECOMMENDATIONS: We discussed treatment options with the patient. At this juncture, we will continue with the patient's current medications. She is aware that the medications can become less effective as time goes on. She feels these medications enable her to engage in activities, she would not be able to without their use. She keeps her medications in a guarded area. A script for her medications of methadone 10 mg 1 p.o. t.i.d. has been written. She will continue this medication for the next 3 months. She has also been provided a script for tramadol 50 mg one p.o. q 4-6 hours p.r.n. The patient will continue to use ibuprofen and note the effect on her GI tract. Should she note some discomfort, she will stop taking this medication. We would like to thank you for letting us participate in her care. We hope she continues to improve. <ELECTRONICALLY SIGNED> By: Kimani Canchola MD 04/29/20 [id number] Kimani Canchola MD /nt
== END ==
LOC: PAIN 06:48
PROVIDERS: ATTEND Anesthesiology Pain Medicine
DX: M54.2 Cervicalgia (principal); M54.5 Low back pain; F11.20 Opioid dependence, uncomplicated; Z87.39 Personal history of other diseases of the musculoskeletal system and connective tissue; Z98.890 Other specified postprocedural states; Z88.8 Allergy status to other drugs, medicaments and biological substances; Z79.899 Other long term (current) drug therapy

== ENCOUNTER → 2020-07-03 | Outpatient (CLI) | payer OTHER ==
[~2020-07-03] VITALS: Ht 149.9 cm; Wt 80.7 kg
[2020-07-03 08:03] VITALS: BP 120/70
--- NOTE | 2020-07-03 08:08 | NUR ---
Pain Clinic Assessment: 1. History of Osteoarthritis: KNEE B/L HIPS LOWER BACK History of Rheumatoid Arthritis: DENIES 2. Height: 4 ft. 11 in. 149.9 cm. Weight: 178.0 lb. oz. 80.740 kg. Patient's BMI: 35.9 3. Vital Signs: BP: 120/70 Pulse: 76 Resp: 20 Temp: 02 Sat: 98 ECG Mon: 4. Pain Intensity: 4 5. Fall Risk: Dizziness: N Needs help standing or walking: N Fallen in the last 3 months: N Fall risk comments: 6. Patient on Blood Thinner: None 7. History of Hypertension: Y 8. Opioid Therapy greater than 6 weeks: Y Opiate Contract Signed: 04/21/20 9. Risk Assessment Tool Provided: LOW RISK 0 10. Functional Assessment Tool: 11. Recreational Drug Use: Never Drug Type: Tobacco Use: Never Smoker Tobacco Type: Amount or Packs/day: How Many Years: Alcohol Use: No Frequency: Quant:
--- NOTE | 2020-07-17 08:11 | HPC ---
[facility] [address] [place] [address] PAIN MANAGEMENT CONSULTATION Name: MADDY ESCOBAR Room #: REG [facility].#: [id number] Admission: 07/03/20 Attend Phys: Kimani Canchola MD Discharge: Date of : 51 Report #: [id number] CC: Kimani Lozano DATE OF SERVICE: 07/03/2020 CHIEF COMPLAINT: Here for renewal of the medications. Things are going reasonably well. HISTORY: The patient is a 64-year-old female who has been followed in the pain clinic because of chronic pain. She has pain involving her low back. She has had some neck pain. She has had knee replacements. Overall, she feels that things are going reasonably well. She feels that her low back pain, neck pain are 4/10 at this juncture. She notes some exacerbation of pain with walking. The pain is worse in the morning, it can increase with activities. She feels that her medications as well as sitting can improve her level of comfort. She has been taking her medications and would like to continue their use. ALLERGIES: MORPHINE, ERYTHROMYCIN. CURRENT MEDICATIONS: Tramadol 50 mg 1 p.o. q. 4-6 hours, methadone 10 mg 1 p.o. t.i.d., ibuprofen 600 mg q.i.d., vitamin D 1000 units, losartan 50 mg, and Lipitor 10 mg. PAIN CLINIC ASSESSMENT AND PQRS: 1. The patient has some osteoarthritic changes in her knees, left as well as right. They have been replaced. The patient is not being treated for rheumatoid arthritis. 2. Height 5 feet 1 inch, weight 178 pounds, BMI is 39.5. 3. Vital Signs: Blood pressure 120/70, pulse 76, respiratory rate 20, room air saturation 98%. 4. Pain intensity 01/02. 5. Fall history: The patient has not fallen since we saw her last. 6. Blood thinner. The patient is not on a blood thinning medication. 7. Hypertension. The patient is being treated for hypertension. 8. Opioids greater than 6 weeks. The patient receives medication from the pain clinic. 9. Risk assessment tool, low for opioid use. 10. Functional assessment tool . 11. Recreational drug use. The patient denies. 12. Tobacco: The patient denies. 13. Alcohol: The patient denies. PHYSICAL EXAMINATION: GENERAL: The patient is a well-developed, well-nourished white female. Appears her stated age. She is alert and oriented x 3. Her affect is appropriate. Speech is fluent. HEENT: Normocephalic, atraumatic. Extraocular eye muscles intact. Sclerae nonicteric. The patient is wearing a facial covering. HEART: Regular rate. NECK: Without adenopathy or JVD. ABDOMEN: Nontender. LUNGS: Clear. EXTREMITIES: Upper extremity muscle strength judged to be 5/5 for the major muscle groups in the upper extremity. The patient without significant scoliosis, kyphosis or lordosis. The patient has well-healed incisions in her knees. Sometimes has pain occasionally in the neck. IMPRESSION: 1. Chronic pain involving the low back. 2. History of osteoarthritis in the knees, status post arthroplasties. RECOMMENDATIONS: At this juncture, we will continue with her medication. She feels the medication is beneficial. She is working on a regular basis. She feels that the medications help to enable her to stay gainfully employed without significant pain impairment. A script for her of medication of methadone 10 mg 1 p.o. t.i.d. has been written. The patient will also continue with her medications of tramadol every 4-6 hours p.r.n. The patient has used ibuprofen. She will continue to monitor her GI tract. We would like to thank you for letting us participate in her care. We hope she continues to improve. <ELECTRONICALLY SIGNED> By: Kimani Canchola MD 07/17/20 0811 [id number] Kimani Canchola MD /nt
== END ==
LOC: PAIN 06:55
PROVIDERS: ATTEND Anesthesiology Pain Medicine
DX: M54.5 Low back pain (principal); G89.29 Other chronic pain; Z87.39 Personal history of other diseases of the musculoskeletal system and connective tissue; Z88.8 Allergy status to other drugs, medicaments and biological substances; Z79.899 Other long term (current) drug therapy

== ENCOUNTER → 2020-10-30 | Outpatient (CLI) | payer OTHER ==
[~2020-10-30] VITALS: Ht 149.9 cm; Wt 80.1 kg
[2020-10-30 08:12] VITALS: BP 132/59
--- NOTE | 2020-10-30 08:28 | NUR ---
Pain Clinic Assessment: 1. History of Osteoarthritis: KNEE B/L HIPS LOWER BACK NECK History of Rheumatoid Arthritis: DENIES 2. Height: 4 ft. 11 in. 149.9 cm. Weight: 176.6 lb. oz. 80.105 kg. Patient's BMI: 35.6 3. Vital Signs: BP: 132/59 Pulse: 70 Resp: 16 Temp: 02 Sat: 98 ECG Mon: 4. Pain Intensity: 3 5. Fall Risk: Dizziness: N Needs help standing or walking: N Fallen in the last 3 months: N Fall risk comments: 6. Patient on Blood Thinner: None 7. History of Hypertension: Y 8. Opioid Therapy greater than 6 weeks: Y Opiate Contract Signed: 04/21/20 9. Risk Assessment Tool Provided: LOW RISK 0 10. Functional Assessment Tool: 11. Recreational Drug Use: Never Drug Type: Tobacco Use: Never Smoker Tobacco Type: Amount or Packs/day: How Many Years: Alcohol Use: No Frequency: Quant:
== END ==
LOC: PAIN 06:57
PROVIDERS: ATTEND Anesthesiology Pain Medicine
DX: M54.5 Low back pain (principal); G89.29 Other chronic pain; I10 Essential (primary) hypertension; E78.00 Pure hypercholesterolemia, unspecified; Z88.8 Allergy status to other drugs, medicaments and biological substances; Z79.899 Other long term (current) drug therapy

== ENCOUNTER → 2021-02-10 | Outpatient (CLI) | payer OTHER ==
[~2021-02-10] VITALS: Ht 149.9 cm; Wt 82.5 kg
[2021-02-10 08:27] VITALS: BP 128/66
--- NOTE | 2021-02-10 08:38 | NUR ---
Pain Clinic Assessment: 1. History of Osteoarthritis: KNEE B/L HIPS LOWER BACK NECK History of Rheumatoid Arthritis: DENIES 2. Height: 4 ft. 11 in. 149.9 cm. Weight: 181.8 lb. oz. 82.464 kg. Patient's BMI: 36.7 3. Vital Signs: BP: 128/66 Pulse: 65 Resp: 16 Temp: 02 Sat: 98 ECG Mon: 4. Pain Intensity: 8-9 WITH ACTIVITY 5. Fall Risk: Dizziness: N Needs help standing or walking: N Fallen in the last 3 months: N Fall risk comments: 6. Patient on Blood Thinner: None 7. History of Hypertension: Y 8. Opioid Therapy greater than 6 weeks: Y Opiate Contract Signed: 04/21/20 9. Risk Assessment Tool Provided: LOW RISK 0 10. Functional Assessment Tool: 11. Recreational Drug Use: Never Drug Type: Tobacco Use: Never Smoker Tobacco Type: Amount or Packs/day: How Many Years: Alcohol Use: No Frequency: Quant:
== END ==
LOC: PAIN 08:10
PROVIDERS: ATTEND Anesthesiology Pain Medicine
DX: Z76.0 Encounter for issue of repeat prescription (principal); M54.5 Low back pain; G89.29 Other chronic pain; E78.00 Pure hypercholesterolemia, unspecified; I10 Essential (primary) hypertension; Z96.653 Presence of artificial knee joint, bilateral; Z79.891 Long term (current) use of opiate analgesic; Z79.899 Other long term (current) drug therapy; Z88.5 Allergy status to narcotic agent

== ENCOUNTER → 2021-05-26 | Outpatient (CLI) | payer OTHER ==
[~2021-05-26] VITALS: Ht 149.9 cm; Wt 82.6 kg
[2021-05-26 08:04] VITALS: BP 146/76
--- NOTE | 2021-05-26 08:11 | NUR ---
Pain Clinic Assessment: 1. History of Osteoarthritis: KNEE B/L HIPS LOWER BACK NECK History of Rheumatoid Arthritis: DENIES 2. Height: 4 ft. 11 in. 149.9 cm. Weight: 182.0 lb. oz. 82.555 kg. Patient's BMI: 36.7 3. Vital Signs: BP: 146/76 Pulse: 72 Resp: 14 Temp: 02 Sat: 99 ECG Mon: 4. Pain Intensity: 2 5. Fall Risk: Dizziness: N Needs help standing or walking: N Fallen in the last 3 months: N Fall risk comments: 6. Patient on Blood Thinner: None 7. History of Hypertension: Y 8. Opioid Therapy greater than 6 weeks: Y Opiate Contract Signed: 04/21/20 9. Risk Assessment Tool Provided: LOW RISK 0 10. Functional Assessment Tool: 11. Recreational Drug Use: Never Drug Type: Tobacco Use: Never Smoker Tobacco Type: Amount or Packs/day: How Many Years: Alcohol Use: No Frequency: Quant:
== END ==
LOC: PAIN 07:40 → RAD 07:45
PROVIDERS: ATTEND Anesthesiology Pain Medicine
DX: Z12.31 Encounter for screening mammogram for malignant neoplasm of breast (principal); G89.29 Other chronic pain; M54.5 Low back pain; M19.90 Unspecified osteoarthritis, unspecified site; I10 Essential (primary) hypertension; E78.00 Pure hypercholesterolemia, unspecified; M17.0 Bilateral primary osteoarthritis of knee; Z96.651 Presence of right artificial knee joint; Z96.652 Presence of left artificial knee joint; Z79.899 Other long term (current) drug therapy; Z88.8 Allergy status to other drugs, medicaments and biological substances

== ENCOUNTER → 2021-09-10 | Outpatient (CLI) | payer OTHER ==
[~2021-09-10] VITALS: Ht 147.3 cm; Wt 78.0 kg
[2021-09-10 08:40] VITALS: BP 145/73
--- NOTE | 2021-09-10 09:10 | NUR ---
Pain Clinic Assessment: 1. History of Osteoarthritis: KNEE B/L HIPS LOWER BACK NECK History of Rheumatoid Arthritis: DENIES 2. Height: 4 ft. 10 in. 147.3 cm. Weight: 172.0 lb. oz. 78.019 kg. Patient's BMI: 36.0 3. Vital Signs: BP: 145/73 Pulse: 76 Resp: 16 Temp: 02 Sat: 98 ECG Mon: 4. Pain Intensity: 2 5. Fall Risk: Dizziness: N Needs help standing or walking: N Fallen in the last 3 months: N Fall risk comments: 6. Patient on Blood Thinner: None 7. History of Hypertension: Y 8. Opioid Therapy greater than 6 weeks: Y Opiate Contract Signed: 04/21/20 9. Risk Assessment Tool Provided: LOW RISK 0 10. Functional Assessment Tool: 11. Recreational Drug Use: Never Drug Type: Tobacco Use: Never Smoker Tobacco Type: Amount or Packs/day: How Many Years: Alcohol Use: No Frequency: Quant:
== END ==
LOC: PAIN 07:42
PROVIDERS: ATTEND Anesthesiology Pain Medicine
DX: G89.29 Other chronic pain (principal); M54.50 Low back pain, unspecified; I10 Essential (primary) hypertension; E78.00 Pure hypercholesterolemia, unspecified; M17.0 Bilateral primary osteoarthritis of knee; Z88.8 Allergy status to other drugs, medicaments and biological substances; Z79.899 Other long term (current) drug therapy